=== PATIENT | female | born 1995 | race Caucasian/White ===

== ENCOUNTER 2019-02-09 11:04 | Outpatient (CLI) | payer SELFPAY ==
[~2019-02-09] VITALS: Ht 162.6 cm; Wt 68.4 kg
[2019-02-09 11:11] VITALS: Ht 162.6 cm; Wt 68.4 kg
[2019-02-09] MEDS ORDERED: PREN-93 PO (11:12)
--- NOTE | 2019-02-09 14:05 | PN ---
Triage Information Date/Time Reason for visit: 27wks for Rhogham inj Weeks of Gestation 29+ /Para 2/1 Diabetes: none Hypertention: none Objective Heart Rate: 140's Contractions: None Disposition: Discharge Assessment/Plan Rhogham given Bpp 04/01 Precautions discussed Questions answered Precautions discussed Follow up with provider BRET HECK M.D. Feb 09, 2019 14:05
--- NOTE | 2019-02-09 14:11 | TRIAGE ---
OB Triage Datetime Report Generated by CPN: 02/09/2019 14:10 Datetime: 02/09/2019 13:06 Stage of : OB Triage Datetime: 02/09/2019 13:00 Stage of : OB Triage Maternal Assessment Level of Consciousness: Keenly Alert, Responsive DTR's/Clonus: DTRs 1+ Headache: Denies Breath Sounds, Left: Clear and Equal Breath Sounds, Right: Clear and Equal Nausea/Vomiting: Denies RUQ Epigastric Pain: Denies Labor Evaluation Frequency: NONE Monitor Mode: External Resting Tone [place]: Relaxed Heart Rate FHR Baseline Rate: 145 Monitor Mode: External US Variability: Moderate 6-25 bpm Accelerations: 10X10 Decelerations: None Category: Category I Pain Assessment Pain Scale: 0 Pain Presence: None/Denies Pain Type: N/A Pain Goal: 3 Vaginal Exam Membrane Status: Intact Datetime: 02/09/2019 11:51 Maternal Assessment Level of Consciousness: Keenly Alert, Responsive DTR's/Clonus: DTRs 1+ Headache: Denies Blurred Vision: No Respiratory Effort: Unlabored Breath Sounds, Left: Clear and Equal Breath Sounds, Right: Clear and Equal Nausea/Vomiting: Denies RUQ Epigastric Pain: Denies Facial Edema: None Labor Evaluation Frequency: NONE Monitor Mode: External Resting Tone [place]: Relaxed Heart Rate FHR Baseline Rate: 145 Monitor Mode: External US Variability: Moderate 6-25 bpm Accelerations: 10X10 Decelerations: None Category: Category I Pain Assessment Pain Scale: 0 Pain Presence: None/Denies Pain Type: N/A Pain Goal: 3 Vaginal Exam Membrane Status: Intact Datetime: 02/09/2019 11:11 EGA: 27.5 Datetime: 02/09/2019 11:05 Assessment Type: Triage Maternal Assessment Level of Consciousness: Keenly Alert, Responsive DTR's/Clonus: DTRs 2+; No Clonus Headache: Denies Blurred Vision: No Respiratory Effort: Unlabored; Regular Rhythm; Equal Expansion Breath Sounds, Left: Clear and Equal Breath Sounds, Right: Clear and Equal Nausea/Vomiting: Denies RUQ Epigastric Pain: Denies Lower Extremities Edema: None Degree: None Upper Extremities Edema: None Degree: None Facial Edema: None Fall Risk Assessment History of Falling: (0) No Secondary Diagnosis: (0) No Ambulatory Aid: (0) Bedrest/Nurse Assist IV Therapy: (0) No Gait: (0) Normal/Bedrest/Immobile Mental Status: (0) Oriented to Own Ability Fall Score: 0 Fall Risk Score Definition: No Risk: No action required Datetime: 02/09/2019 10:57 Time of Arrival: 02/09/2019 10:57 Arrived By: Ambulatory Arrived From: Office Chief Complaint: PT CAME IN FROM [facility] FOR [facility]OGHAM SHOT. DENIES ANY PAIN OR PROBLEMS AT TH IS TIME. PLACED ON EFM X 2 Movement: Present Contractions: Denies/Absent Rupture of Membranes: Denies Vaginal Discharge: Denies Recent Sexual Intercouse: Denies Abdominal Trauma: Not Applicable Additional Patient Complaints: NONE Time Provider Notified: 02/09/2019 11:10 Provider Notified: UMANG Initial Plan: TYPE AND RH, MONITOR AND RHOGAM
== END 2019-02-09 14:10 | disposition home or self-care (01) ==
LOC: OBT 11:04 → L-D 11:04 → OBT 14:10
PROVIDERS: ATTEND Obstetrics & Gynecology
DX: Z36.2 Encounter for other antenatal screening follow-up (principal); Z3A.29 29 weeks gestation of pregnancy
CPT/HCPCS: 76818; 86850; 86885; 86900; 86901; G0463; J2790

== ENCOUNTER 2019-04-05 10:15 | Outpatient (CLI) | payer MEDICAID ==
[~2019-04-05] VITALS: Ht 162.6 cm; Wt 77.0 kg
[~2019-04-05 10:15] MED LIST: PREN-93 PO
[2019-04-05 10:33] VITALS: Ht 162.6 cm; Wt 77.0 kg
[2019-04-05 10:34] VITALS: BP 120/69; PULSE 111; RESP 18
[2019-04-05] MEDS ORDERED: LACTATED RINGER'S 1,000 ML IV SCH (10:39)
--- NOTE | 2019-04-05 13:14 | TRIAGE ---
OB Triage Datetime Report Generated by CPN: 04/05/2019 13:13 Datetime: 04/05/2019 12:58 Labor Evaluation Frequency: x1 Monitor Mode: External Duration (sec)2399: 50 Quality: Mild Pattern: Normal: <= 5 Contractions in 10 Minutes Resting Tone [place]: Relaxed Heart Rate FHR Baseline Rate: 135 Monitor Mode: External US Variability: Moderate 6-25 bpm Accelerations: 15X15 Decelerations: None Category: Category I Pain Assessment Pain Scale: 2 Pain Presence: Constant Pain Type: Dull Pain Location: Abdomen; Back Pain Goal: 3 Datetime: 04/05/2019 12:57 Vaginal Exam Dilatation (cms): 0.0 Exam By: [email or web address] Datetime: 04/05/2019 12:00 Labor Evaluation Frequency: x1 Monitor Mode: External Duration (sec)2399: 40 Quality: Mild Pattern: Normal: <= 5 Contractions in 10 Minutes Resting Tone [place]: Relaxed Heart Rate FHR Baseline Rate: 145 Monitor Mode: External US Variability: Moderate 6-25 bpm Accelerations: 15X15 Decelerations: None Category: Category I Datetime: 04/05/2019 11:01 Pattern: Normal: <= 5 Contractions in 10 Minutes Resting Tone [place]: Relaxed Contraction Comments: no uc Heart Rate FHR Baseline Rate: 145 Monitor Mode: External US Variability: Moderate 6-25 bpm Accelerations: 15X15 Decelerations: None Category: Category I Pain Assessment Pain Scale: 6 Pain Presence: Constant Pain Type: Dull Pain Location: Abdomen; Back Pain Goal: 3 Pain Assessment Comments: pain @ lower abdomen, low back Datetime: 04/05/2019 10:27 Vaginal Exam Dilatation (cms): 0.0 Exam By: [email or web address] Datetime: 04/05/2019 10:25 Assessment Type: Triage Maternal Assessment Level of Consciousness: Keenly Alert, Responsive DTR's/Clonus: DTRs 2+; No Clonus Headache: Denies Blurred Vision: No Respiratory Effort: Unlabored; Regular Rhythm; Equal Expansion Breath Sounds, Left: Clear and Equal Breath Sounds, Right: Clear and Equal Nausea/Vomiting: Denies RUQ Epigastric Pain: Denies Lower Extremities Edema: None Degree: None Upper Extremities Edema: None Facial Edema: None Fall Risk Assessment History of Falling: (0) No Secondary Diagnosis: (0) No Ambulatory Aid: (0) Bedrest/Nurse Assist IV Therapy: (0) No Gait: (0) Normal/Bedrest/Immobile Mental Status: (0) Oriented to Own Ability Fall Score: 0 Fall Risk Score Definition: No Risk: No action required Datetime: 04/05/2019 10:23 Time of Arrival: 04/05/2019 10:10 EGA: 36.1 Arrived By: Ambulatory Arrived From: Home Chief Complaint: C/O Lower abdominal pain _ lower back pain, pain level 6/10, also c/o decreased fm Movement: Decreased Rupture of Membranes: Denies Vaginal Bleeding: None Vaginal Discharge: Denies Recent Sexual Intercouse: Denies Abdominal Trauma: Not Applicable Patient Complaints: Other Time Provider Notified: 04/05/2019 10:36 Provider Notified: salceda Initial Plan: r/o ptl Datetime: 02/09/2019 11:11 EGA: 28.2 Datetime: 02/09/2019 11:05 Fall Score: 0 Fall Risk Score Definition: No Risk: No action required
--- NOTE | 2019-04-11 10:56 | PREOPHP ---
DATE OF ADMISSION: 04/05/2019 HISTORY OF PRESENT ILLNESS: This is a 24-year-old lady, 2, para 1, EDC 05/02/2019, at 36 and 1/7 weeks, admitted for observation for lower abdominal pain and low back pain. She had ca re in my [place] office and the care was uneventful. PAST PERSONAL HISTORY: No history of diabetes, TB or asthma. ALLERGIES: None. SOCIAL HISTORY: The patient does not smoke. She does not drink. MEDICATIONS: She does not take any drugs except her iron and vitamins. GYNECOLOGIC HISTORY: She had menarche at the age of 14, every 28 days interval, 3 to 4 days duration , and moderate in amount. FAMILY HISTORY: 2, para 1. Her first delivery was 2016 by . REVIEW OF SYSTEMS: CARDIOVASCULAR: No chest pains. RESPIRATORY: No cough. GASTROINTESTINAL: No diarrhea, no vomiting. GENITOURINARY: No dysuria. PHYSICAL EXAMINATION: GENERAL: Reveals a conscious, coherent lady and in no acute distress. VITAL SIGNS: Her blood pressure 120/80, pulse rate 80 per minute, respirations 16 per minute. BREASTS, HEART AND LUNGS: Within normal limits. ABDOMEN: Soft, nontender, nondistended. PELVIC: Revealed the cervix to be closed. EXTREMITIES: No pedal edema. ADMITTING DIAGNOSES: A 36-week intrauterine . Rule out labor. The Patient had an OB ultrasound and the ultrasound was normal, SHARI was normal. All the lab tests we re normal. She was given fluids and the patient felt better. The pain had disappeared and she wante d to go home, so she was discharged home in good and stable condition. General diet and activity was up ad mani. She was told to come back to the clinic for her regular appointment. FINAL DIAGNOSIS: A 36 weeks and 1/7 weeks intrauterine , dehydration. Dictated By: MARY KAY HOWE/MARYJO Conf#: [id number] DID#: [id number]
== END 2019-04-05 13:15 | disposition home or self-care (01) ==
LOC: OBT 10:15 → L-D 10:16 → OBT 13:15
PROVIDERS: ATTEND Obstetrics & Gynecology
DX: O26.893 Other specified pregnancy related conditions, third trimester (principal); Z3A.36 36 weeks gestation of pregnancy; E86.0 Dehydration
CPT/HCPCS: 36415; 76815; 76818; 80053; 81001; 85025; 87086; 96360; J7120; Z7500; 81003; G0463

== ENCOUNTER 2019-04-07 13:49 | Outpatient (CLI) | payer MEDICAID ==
[~2019-04-07] VITALS: Ht 160 cm; Wt 76.8 kg
[2019-04-07 15:27] VITALS: Ht 160 cm; Wt 76.8 kg
[2019-04-07 15:32] VITALS: BP 118/66
== END 2019-04-07 17:11 | disposition home or self-care (01) ==
LOC: OBT 13:49 → L-D 13:50 → OBT 17:11
PROVIDERS: ATTEND Obstetrics & Gynecology
DX: O36.8130 Decreased fetal movements, third trimester, not applicable or unspecified (principal); Z3A.36 36 weeks gestation of pregnancy
CPT/HCPCS: 76818; Z7500; G0463

== ENCOUNTER 2019-04-21 12:17 | Inpatient (IN) | payer MEDICAID ==
[~2019-04-21] VITALS: Ht 167.6 cm; Wt 80.6 kg
[2019-04-21] VITALS (7 sets, daily range): BP systolic 101–113; BP diastolic 45–78; PULSE 71–88; RESP 17–20; Ht 167.6 cm; Wt 80.6 kg
[2019-04-21] MEDS ORDERED: MISOPROSTOL 200 MCG TAB PR PRN ×2 (12:30→21:00)
[2019-04-21] MEDS ORDERED: OXYTOCIN 30 UNITS/LR 500 ML IV SCH ×2 (12:30→20:46)
[2019-04-21] MEDS ORDERED: CARBOPROST 250 MCG INJ IM PRN ×2 (12:30→21:00)
[2019-04-21] MEDS ORDERED: CEFAZOLIN 2 GM/50 ML (PMX) 50 ML IVPB SCH (12:30)
[2019-04-21] MEDS ORDERED: METHYLERGONOVINE 0.2 MG INJ IM PRN ×2 (12:30→21:00)
[2019-04-21] MEDS ORDERED: OXYTOCIN 30 UNITS/LR 500 ML IV PRN ×2 (12:30→21:00)
[2019-04-21] MEDS: LACTATED RINGER'S 1,000 ML IV SCH ×2 (15:54→17:36)
[2019-04-21] MEDS ORDERED: morphine SULFATE/PF (10 MG/10 ML) INJ ONE (19:07)
[2019-04-21] MEDS ORDERED: FENTAnyl 50 MCG/ML VIAL ONE (19:07)
[2019-04-21] MEDS ORDERED: PHENYLephrine (100 MCG/ML) 10ML SYG ONE (19:30)
[2019-04-21] MEDS ORDERED: ONDANSETRON 4 MG INJ ONE (19:31)
[2019-04-21] MEDS ORDERED: OXYTOCIN 10 UNIT INJ ONE (19:41)
[2019-04-21] MEDS ORDERED: NALOXONE (0.4 MG/ML) INJ IV PRN (20:00)
[2019-04-21] MEDS ORDERED: NALBUPHINE HCL (10 MG/1 ML) INJ IV PRN (20:00)
[2019-04-21] MEDS ORDERED: TRIMETHOBENZAMIDE 100 MG/ML VIAL IM PRN (20:00)
[2019-04-21] MEDS ORDERED: DIPHENHYDRAMINE 50 MG INJ IV PRN ×2 (20:00→23:00)
[2019-04-21] MEDS ORDERED: ONDANSETRON 4 MG INJ IV PRN (20:00)
[2019-04-21] MEDS ORDERED: morphine 2 MG INJ IV PRN ×2 (20:00)
[2019-04-21] MEDS ORDERED: LACTATED RINGER'S 1,000 ML IV SCH (20:46)
[2019-04-21] MEDS ORDERED: LANOLIN HPA 1 PKT TOP PRN (21:00)
[2019-04-21] MEDS: SENNA/DOCUSATE NA (8.6MG/50MG) TAB PO SCH (21:00)
[2019-04-21] MEDS ORDERED: METHYLERGONOVINE 0.2 MG TAB PO PRN (21:00)
[2019-04-21] MEDS: KETOROLAC 30 MG INJ IV PRN (22:45)
[2019-04-22 04:00] VITALS: BP 100/51; PULSE 89; RESP 17
[2019-04-22 08:00] VITALS: BP 108/61; PULSE 92; RESP 18
[2019-04-22] MEDS: KETOROLAC 30 MG INJ IV PRN ×2 (09:02→16:45)
[2019-04-22] MEDS: SENNA/DOCUSATE NA (8.6MG/50MG) TAB PO SCH ×2 (09:02→21:20)
[2019-04-22] MEDS ORDERED: IBUPROFEN 800 MG TAB PO PRN (09:30)
[2019-04-22] MEDS ORDERED: HYDROCODONE/APAP (5/325) TAB PO PRN (09:30)
[2019-04-22 12:06] VITALS: BP 101/56; PULSE 88; RESP 17
[2019-04-22 17:24] VITALS: BP 103/66; PULSE 84; RESP 18
[2019-04-22 19:40] VITALS: BP 104/60; PULSE 87; RESP 18
[2019-04-22] MEDS: HYDROCODONE/APAP (5/325) TAB PO PRN (21:20)
[2019-04-23] MEDS: HYDROCODONE/APAP (5/325) TAB PO PRN ×5 (03:50→23:32)
[2019-04-23] MEDS: SENNA/DOCUSATE NA (8.6MG/50MG) TAB PO SCH ×2 (09:26→20:45)
[2019-04-23 10:20] VITALS: BP 106/60; PULSE 82; RESP 20
[2019-04-23 15:20] VITALS: BP 95/54; PULSE 80; RESP 20
[2019-04-23 20:00] VITALS: BP 99/62; PULSE 87; RESP 18
[2019-04-23] MEDS ORDERED: BISACODYL 10 MG SUPP PR PRN (22:00)
[2019-04-23] MEDS ORDERED: MAGNESIUM HYDROXIDE 30ML CUP PO PRN (22:00)
[2019-04-24 04:04] VITALS: BP 109/61; PULSE 89; RESP 18
[2019-04-24] MEDS: HYDROCODONE/APAP (5/325) TAB PO PRN (05:12)
[2019-04-24 08:00] VITALS: BP 114/69; PULSE 90; RESP 19
[2019-04-24] MEDS ORDERED: MEASLES,MUMPS,RUBELLA VACCINE INJ SC* ONE (09:00)
[2019-04-24] MEDS ORDERED: DIPHTH/TET/ACEL PERTUSS (ADULT) 0.5 ML VIAL IM* ONE (09:00)
[2019-04-24] MEDS: SENNA/DOCUSATE NA (8.6MG/50MG) TAB PO SCH (09:33)
[2019-04-24] MEDS: ACETAMINOPHEN 500 MG TAB PO PRN ×2 (10:14→15:49)
[2019-04-24] MEDS ORDERED: IBUPROFEN 800 MG TAB PO PRN (23:00)
== END 2019-04-24 17:55 | disposition home or self-care (01) | DRG 788 ==
LOC: L-D 12:17 → PP1 23:31 → EDSTATUS 05-06 12:17
PROVIDERS: ADMIT Obstetrics & Gynecology; ATTEND Obstetrics & Gynecology
PROC: 10D00Z1 Extraction of Products of Conception, Low, Open Approach (ICD-10-PCS; principal; 2019-04-22)
PROC: 3E033VJ Introduction of Other Hormone into Peripheral Vein, Percutaneous Approach (ICD-10-PCS; 2019-04-22)
DX: O65.5 Obstructed labor due to abnormality of maternal pelvic organs (principal); O34.211 Maternal care for low transverse scar from previous cesarean delivery; Z3A.38 38 weeks gestation of pregnancy; Z37.0 Single live birth
CPT/HCPCS: 80048; 85025; 85610; 85730; 86592; 86850; 86870; 86900; 86901; 87340; 99464; J0690; J1200; J1885; J2274; J2300; J2370; J2405; J2590; J3010; J7120